=== PATIENT | female | born 1970 | race African-American/Black ===

== ENCOUNTER 2016-07-19 11:27 | Emergency (ER) | payer OTHER ==
[2016-07-19 11:31] VITALS: TEMP 98.7; BMI 32.8
--- NOTE | 2016-07-19 12:08 | PDOC ---
History of Present Illness - General Chief Complaint: Injury Stated Complaint: FALL/ HAND INJURY Time Seen by Provider: 07/19/16 11:48 History Source: Patient Exam Limitations: No Limitations - History of Present Illness Initial Comments: 07/19/16 12:09 45y F no pmhx presents with complaint for R wrist pain. The patient states that she slipped and fell landing on outstreetched hand on friday and has been having pain to her R thumb. She states it hurts when she moves it and when she is twisting something like opening a jar. denies any numbness/tingling/ weakness. pt denies any head injury, loc, neck pain, shouler pain, elbow pain, back pain or any other complaints. no prodromes of syncope. pt taking alleve with moderate releif of pain. Past History - Past Medical History Allergies/Adverse Reactions: Allergies Allergy/AdvReac Type Severity Reaction Status Date / Time No Known Allergies Allergy Verified 07/19/16 11:29 Home Medications: Ambulatory Orders Metformin HCl 500 mg PO BID 07/19/16 Diabetes: Yes - Immunization History Immunization Up to Date: Yes - Psycho/Social/Smoking Cessation Hx Anxiety: No Suicidal Ideation: No Smoking History: Current every day smoker Have you smoked in the past 12 months: Yes Number of Cigarettes Smoked Daily: 6 Information on smoking cessation initiated: No Hx Alcohol Use: No Drug/Substance Use Hx: No Substance Use Type: None Review of Systems - Review of Systems Able to Perform ROS?: Yes Comments:: 07/19/16 12:12 Constitutional - no reported weakness, dizziness Musculskelatal - + R thumb pain no reported back pain, joint swelling skin - no reported bruising, erythema, rash neurological: no reported headache, numbness, focal weakness, tingling, ataxia, weakness *Physical Exam - Vital Signs Last Vital Signs Temp Pulse Resp BP Pulse Ox 98.7 F 70 20 146/82 98 07/19/16 11:29 07/19/16 11:29 07/19/16 11:29 07/19/16 11:29 07/19/16 11:29 - Physical Exam Comments: 07/19/16 12:14 GENERAL: The patient is awake, alert, and fully oriented, Nontoxic - in no acute distress. HEAD: Normocephalic, atraumatic. EXTREMITIES: Normal range of motion, of shoulder/elbow/wrist, fingers b/l, tendneres to palpation along medial aspect of hand at base of 1st mcp, normal strength on thumb flexion/extension without signficant pain on ROM. Medical Decision Making - Medical Decision Making 07/19/16 12:09 45 F presents s/p fall with R wrist pain suspect strain pt declines pain meds will obtain xray to r/o fx 07/19/16 13:42 no fx on xray pt was placed in a thumb splint - likely strain supportive management and pmd fu in a few days will have pt continue alleve and fu with pmd for reassessment return precautions were discussed I discussed the physical exam findings, ancillary test results and final diagnoses with the patient. I answered all of the patient's questions. The patient was satisfied with the care received and felt comfortable with the discharge plan and treatment plan. The patient will call their primary care physician within 24 hours to arrange follow-up and will return to the Emergency Department with any new, persistent or worsening symptoms. *DC/Admit/Observation/Transfer Diagnosis at time of Disposition: Strain of thumb, right Qualifiers: Encounter type: initial encounter Qualified Code(s): S66.911A - Strain of unspecified muscle, fascia and tendon at wrist and hand level, right hand, initial encounter - Discharge Dispostion Disposition: HOME Condition at time of disposition: Improved Admit: No - Referrals Referrals: Lisa Burgos MD [Primary Care Provider] - - Patient Instructions Printed Discharge Instructions: DI for Finger Sprain Additional Instructions: Return to the emergency department immediately with ANY new, persistent or worsening symptoms. Take ibuprofen as needed for pain Use this splint as long as he have any discomfort. No heavy lifting using the affected hand. You MUST call and follow up with your doctor tomorrow for further evaluation of your symptoms. Results were discussed with you. Please make sure your doctor reviews the results of your emergency evaluation. I Print Language: HUNGARIAN
[2016-07-19 14:00] VITALS: BP 137/74; PULSE 73
== END 2016-07-19 14:00 | disposition home or self-care (01) ==
LOC: JERFT 11:27 → JER 11:27
PROC: 2W3EX1Z Immobilization of Right Hand using Splint (ICD-10-PCS; principal; 2016-07-19)
DX: S66.911A Strain of unspecified muscle, fascia and tendon at wrist and hand level, right hand, initial encounter (principal); W18.39XA Other fall on same level, initial encounter; Y93.9 Activity, unspecified; Y92.9 Unspecified place or not applicable
CPT/HCPCS: 29125; 73110-TC-RT; 73130-TC-RT; 99283-25

== ENCOUNTER → 2022-03-20 | Day surgery (SDC) | payer OTHER | END | disposition home or self-care (01) | LOC: JMAMMO-SUR 08:52 | PROVIDERS: ATTEND Family Medicine | PROC: 0H9U3ZX Drainage of Left Breast, Percutaneous Approach, Diagnostic (ICD-10-PCS; principal; 2022-03-20) | DX: N64.89 Other specified disorders of breast (principal) | CPT/HCPCS: 19083; 87899; 88305-TC; 88342-TC; A4648 ==

== ENCOUNTER → 2022-06-26 | Day surgery (SDC) | payer OTHER | END | disposition home or self-care (01) | LOC: EDSTATUS 08:15 → JRADUS-SUR 08:18 → JRADUS 08:18 | PROVIDERS: ATTEND Family Medicine | PROC: 0H9U3ZX Drainage of Left Breast, Percutaneous Approach, Diagnostic (ICD-10-PCS; principal; 2022-06-26) | DX: N61.1 Abscess of the breast and nipple (principal) | CPT/HCPCS: 10160; 76642-TC-LT; 76942-TC; 87070; 87075; 87186; 87205; 87899; 88173; 88305-TC ==